=== PATIENT | male | born 1960 | race Caucasian/White ===

== ENCOUNTER 2017-03-16 19:41 | Emergency (ER) | payer OTHER ==
[2017-03-16 19:48] VITALS: BP 117/71; BMI 22.9
[2017-03-16] MEDS ORDERED: XYLOCAINE 1 % (PLAIN) ONE ×2 (19:51→19:52)
[2017-03-16] MEDS ORDERED: XYLOCAINE 2 % (PLAIN) ONE (19:54)
--- NOTE | 2017-03-16 20:21 | DR.GENAD ---
HPI - PCP Primary Care Physician: ELLIOTT MONTEIRO - Complaint/Symptoms Chief Complaint Doctors Comments: Patient fell in sustained a laceration to the right forearm distal to the elbow About 2-3 hours ago. Chief Complaint:: FELL AND INJURED RIGHT ARM/WELBOW LACERATION TO FOREARM - Source History Provided: Patient - Mode of Arrival Mode of Arrival: Ambulatory - Timing Onset of Chief Complaint: 03/16/17 PMH - PMH Past Medical History: No Past Medical History: Arthritis Past Surgical History: Yes Surgical History: Ortho Surgery Past Surgical History Comment: SHOULDER REPAIR - Family History History of Family Medical Conditions: Yes Family Medical History: [place], Hypertension - Social History Does patient currently use any type of tobacco product: Yes Have you used tobacco products in the last 12 months: Yes Type of Tobacco Use: Cigarettes Does any household member use tobacco: No Alcohol Use: None Do you use any recreational Drugs:: Yes Lives With: Spouse Lives Where: Home - infectious screening In the last 2 months have you had wt loss of >10#?: NO Have you had fever, night sweats or hemotysis?: No Have you traveled outside the country in the last 6 months?: No Isolation: Standard ROS - Review of Systems Eyes: No Symptoms Reported ENTM: No Symptoms Reported Respiratoy: No Symptoms Reported Cardiovascular: No Symptoms Reported Gastrointestinal/Abdominal: No Symptoms Reported Genitourinary: No Symptoms Reported Neurological: No Symptoms Reported Musculoskeletal: Left, Forearm (laceration) Integumentary: No Symptoms Reported Hematologic/Lymphatic: No Symptoms Reported Endocrine: No Symptoms Reported Psychiatric: No Symptoms Reported All Other Systems: Reviewed and Negative PE - Vital Signs Vitals: Temperature 98.3 F Pulse Rate 91 Respiratory Rate 18 Blood Pressure 117/71 O2 Sat by Pulse Oximetry 95 - General Limitations: No Limitations General Appearance: Alert, In No Apparent Distress - Head Head Exam: Normal Inspection, Atraumatic - Eyes Eye exam: Normal Appearance, PERRL, EOMI - ENT ENT Exam: Normal Exam External Ear Exam: Normal External Inspection TM/Canal Exam: Bilateral Normal Nose Exam: Normal Nose Exam Mouth Exam: Normal Inspection Throat Exam: Normal Inspection - Neck Neck Exam: Normal Inspection, Full ROM - Chest Chest Inspection: Normal Inspection - Respiratory Respiratory Exam: Normal Lung Sounds Bilat Respiratory Exam: Bilateral Clear to Auscultation - Cardiovascular Cardiovascular Exam: Regular Rate, Normal Rhythm - Abdominal Exam Abdominal Exam: Normal Inspection Abdominal Tenderness: negative: RUQ, RLQ, LUQ, LLQ, Epigastrium, Suprapubic, Diffuse, Mild, Moderate, Severe, Other - Extremities Extremities Exam: Other (right forearm with a jaggered laceration of ~3cm) - Back Back Exam: Normal Inspection - Neurologic Neurological Exam: Alert, Oriented X3, CN II-XII Intact - Psychiatric Psychiatric Exam: Normal Affect - Skin Skin Exam: Warm, Dry. negative: Intact (laceration of right forearm) Course - Education/Counseling Educated On: Treatment, Diagnosis, Needs for Follow Up (suture removal in 8 days ) ROR - XRAY XRAY Interpreted by: Radiologist (Elbow: No fracture or dislocation) Procedures - Laceration/Wound Repair Right Forearm Wound Length (cm): 3 Wound's Depth, Shape: Superficial, Irregular Wound Explored: clean Betadine Prep?: Yes Anesthesia: 2% Lidocaine (7cc) Wound Debrided: minimal Wound Repaired With: sutures Suture Size/Type: 5:0 (monosoft) - Diagnosis Discharge Problem: Laceration of forearm, right Qualifiers: Encounter type: initial encounter Qualified Code(s): S51.811A - Laceration without foreign body of right forearm, initial encounter Contusion of elbow, right Qualifiers: Encounter type: initial encounter Qualified Code(s): S50.01XA - Contusion of right elbow, initial encounter - Discharge Plan Condition: Stable Prescriptions: Cephalexin [KEFLEX CAP 500 MG *] 500 mg PO BID #10 cap Hydrocodone/Acetaminophen [Hydrocodone/Acetaminophen 7.5-325 mg] 1 tab PO Q6H PRN #12 tab PRN Reason: Pain - Follow ups/Referrals Follow ups/Referrals: ELLIOTT MONTEIRO [Primary Care Provider] - 3 days - Instructions Instructions: Laceration Care, Adult, [id number]
[2017-03-16] MEDS ORDERED: ADACEL TDaP IM ONE ×2 (20:44→20:50)
[2017-03-16] MEDS ORDERED: BACTROBAN OINT TOP ONE (21:07)
[2017-03-16] MEDS ORDERED: TORADOL 60 MG VIAL IM ONE (21:31)
[2017-03-16] MEDS ORDERED: TORADOL 60 MG VIAL ONE (21:32)
--- NOTE | 2017-03-16 21:40 | RAD ---
Four views of the right elbow. Indication: Elbow pain post fall Findings: No acute fracture or dislocation identified within the right elbow. There is moderate degen erative change of the coronoid process of the proximal ulna with a well corticated osteochondral body adjacent to the coronoid process measuring 4 mm. There is also small osteophyte noted at the posteri or margin of the olecranon process as well. The radio capitellar and ulna humeral joint spaces are ma intained. No joint effusion or fat pad displacement. 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 No acute fracture or malalignment of the right elbow. No loca lizing soft tissue swelling or joint effusion. Reported By:
== END 2017-03-16 21:45 | disposition home or self-care (01) ==
LOC: ER 19:41
PROC: 0XQB0ZZ Repair Right Elbow Region, Open Approach (ICD-10-PCS; principal; 2017-03-16)
DX: S51.811A Laceration without foreign body of right forearm, initial encounter (principal); S50.01XA Contusion of right elbow, initial encounter; W19.XXXA Unspecified fall, initial encounter; Y92.9 Unspecified place or not applicable
CPT/HCPCS: 73070; 90471; 96372; 99282; 99283; J1885; J2001